=== PATIENT | male | born 2000 | race Caucasian/White ===

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

== ENCOUNTER 2021-04-13 11:54 | Emergency (ER) | payer OTHER ==
[~2021-04-13] VITALS: Ht 175.3 cm; Wt 99.5 kg
[~2021-04-13 11:54] MED LIST: PROT1TAB2 PO
--- OUTSIDE RECORDS SUMMARY | 2021-04-13 12:06 | CCD ---
Author Author [facility] Organization [facility] Address Unknown Phone Unavailable Care Team Providers Care Tv Host Name Role Phone NO, PCP Unavailable Unavailable LETTIERE, A CHRISTIAN PA Unavailable Unavailable LETTIERE, A CHRISTIAN PA Unavailable Unavailable LETTIERE, A CHRISTIAN PA Unavailable Unavailable LETTIERE, A CHRISTIAN PA Unavailable Unavailable LETTIERE, A CHRISTIAN PA Unavailable Unavailable LETTIERE, A CHRISTIAN PA Unavailable Unavailable LETTIERE, A CHRISTIAN PA Unavailable Unavailable LETTIERE, A CHRISTIAN PA Unavailable Unavailable LETTIERE, A CHRISTIAN PA Unavailable Unavailable LETTIERE, A CHRISTIAN PA Unavailable Unavailable LETTIERE, A CHRISTIAN PA Unavailable Unavailable LETTIERE, A CHRISTIAN PA Unavailable Unavailable LETTIERE, A CHRISTIAN PA Unavailable Unavailable LETTIERE, A CHRISTIAN PA Unavailable Unavailable LETTIERE, A CHRISTIAN PA Unavailable Unavailable LETTIERE, A CHRISTIAN PA Unavailable Unavailable LETTIERE, A CHRISTIAN PA Unavailable Unavailable LETTIERE, A CHRISTIAN PA Unavailable Unavailable LETTIERE, A CHRISTIAN PA Unavailable Unavailable LETTIERE, A CHRISTIAN PA Unavailable Unavailable LETTIERE, A CHRISTIAN PA Unavailable Unavailable LETTIERE, A CHRISTIAN PA Unavailable Unavailable LETTIERE, A CHRISTIAN PA Unavailable Unavailable LETTIERE, A CHRISTIAN PA Unavailable Unavailable LETTIERE, A CHRISTIAN PA Unavailable Unavailable LETTIERE, A CHRISTIAN PA Unavailable Unavailable LETTIERE, A CHRISTIAN PA Unavailable Unavailable LETTIERE, A CHRISTIAN PA Unavailable Unavailable LETTIERE, A CHRISTIAN PA Unavailable Unavailable LETTIERE, A CHRISTIAN PA Unavailable Unavailable LETTIERE, A CHRISTIAN PA Unavailable Unavailable Yang, Trevor Sheppard PA-C Unavailable Unavailable Yang, Trevor Sheppard PA-C Unavailable Unavailable Yang, J Silver PA-C Unavailable Unavailable Yang, Trevor Sheppard PA-C Unavailable Unavailable Yang, Trevor Sheppard PA-C Unavailable Unavailable Yang, Trevor Sheppard PA-C Unavailable Unavailable Yang, Trevor Sheppard PA-C Unavailable Unavailable Yang, Trevor Sheppard PA-C Unavailable Unavailable Yang, Trevor Sheppard PA-C Unavailable Unavailable Yang, Trevor Sheppard PA-C Unavailable Unavailable Re-disclosure Warning The records that you are about to access may contain information from federally-assisted alcohol or drug abuse programs. If such information is present, then the following federally mandated warning applies: This information has been disclosed to you from records protected by federal confidentiality rules (42 CFR part 2). The federal rules prohibit you from making any further disclosure of this information unless further disclosure is expressly permitted by the written consent of the person to whom it pertains or as otherwise permitted by 42 CFR part 2. A general authorization for the release of medical or other information is NOT sufficient for this purpose. The Federal rules restrict any use of the information to criminally investigate or prosecute any alcohol or drug abuse patient.The records that you are about to access may contain highly sensitive health information, the redisclosure of which is protected by Article 27-F of the [facility] Public Health law. If you continue you may have access to information: Regarding HIV / AIDS; Provided by facilities licensed or operated by the [facility] Office of Mental Health; or Provided by the [facility] Office for People With Developmental Disabilities. If such information is present, then the following [facility] mandated warning applies: This information has been disclosed to you from confidential records which are protected by state law. State law prohibits you from making any further disclosure of this information without the specific written consent of the person to whom it pertains, or as otherwise permitted by law. Any unauthorized further disclosure in violation of state law may result in a fine or intermediate sentence or both. A general authorization for the release of medical or other information is NOT sufficient authorization for further disc losure. Encounters Encounter Providers Location Date Indications Data Source(s ) Emergency Attender: Silver AARONCConsultant: PCP NO 08/01/2020 07:36:00 AM EST - 08/01/2020 09:56:[address] [facility] Patient discharged. Outpatient Attender: CHRISTIAN ramos 05/09/2020 03:30:00 PM EST [facility] ([facility]) Medications No Information Insurance Providers Payer name Policy type / Coverage type Policy ID Covered alliance party ID Covered alliance party's relationship to stapleton Policy [place] Plan Information [facility] [employer] [id number] SP [id number] [facility] - PHYSICIAN [id number] 18 [id number] [facility] [id number] 18 [id number] Problems, Conditions, and Diagnoses Code Display Name Description Problem Type Effective Dates Data Source(s) U071 COVID-19 COVID-19 Diagnosis 08/01/2020 07:36:00 AM [facility] J029 Acute pharyngitis, unspecified Acute pharyngitis, unsp ecified Diagnosis 08/01/2020 07:36:00 AM [facility] Surgeries/Procedures No Information Results ID Date Data Source [id number] 08/04/2020 11:03:00 AM [facility] [address] [place] [address] PHONE: [phone] FAX: [phone] Name .................. : PARRISH Sue Acct Number.................. : [id number] ROOM. ................. : TR-1B Number ................... : [id number] Stay type ............. : E/R Discharge Date......... ... : Admit Date ......... : 0 08/01/20 Admit Phys .................... : YANG JOAN Date of ....... : 2000 Family Phys ................... : NO PCP Phone .................. : [phone] Age ................................ : 20 Film# .................. .:[id number] Sex ................................. : M Unsigned transcriptions are preliminary reports and do not represent a medical or legal document CHEST PORTABLE [id number] COMPLETE:08/01/20 08:16 KBO 3661 Reason(s): cough, fever, chest congestion CHEST AP PORTABLE, 08/01/20: FINDINGS: The cardiac and mediastinal silhouettes appear normal and the lungs are clear. The bones and soft tissues are normal. The upper abdomen is unremarkable. IMPRESSION: No acute disease identifiable. Electronically Reviewed and Signed By RONEL VALLEJO MD , 08/04/20 11:03, [facility] Transcribe Ini tials: MARGARET, Transcribe Date: 08/01/20 09:07, Dictation Date: Copy for: YANG Murray via fax Copy for: EMERGENCY DEPT via [facility] Copy for: 710 MED REC DISCHARGED Page 1 of 1 Name Value Range Interpretation Code Description Data Saima rce(s) Supporting Document(s) ID Date Data Source [id number] 08/01/2020 07:36:00 AM EST [facility] 1 OrderSheet [facility] Emergency Department [address] [place] [address] Phone #: ext- [phone] 08/01/2020 07:33 Patient: FERNANDA SENIOR Sex: M : 2000 Age: 20yWEIGHT:90.7 kg (S) HEIGHT:70 inches (S) BMI:28.7ALLERGIES: NoneCHIEF COMPLAINT: fever, sore throatDIAGNOSIS: Upper respiratory infectionLAB ORDERSOrder Description Priority Entered Acknowledged InitialedCORONAVIRUS STAT 08:01 08/01/2020 08:02 MONCHO MendesID-19 Silver YOO; Kecia Tellez(Symptomatic asDefined by CDC)(08/01/20) (FirstTest) (NotHospitalized) (Not) (NotResident inCongregate CareSetting) (NotEmployed inHealthcare Setting)Rapid Strep Screen STAT 08:01 08/01/2020 08:02 Silver Mendes; Kecia TellezInfluenza Nasal A B STAT 08:01 08/01/2020 08:02 Silver Mendes; Kecia TellezDIAGNOSTIC STUDY ORDERSOrder Description Priority Entered Acknowledged InitialedChest Portable 1 STAT 08:01 08/01/2020 Ack'd: 08:02 08:09 Migue Mendes; Kecia Mendes R.N.(Oxygen?(No)) R.NSheri Reason for Study: cough, fever, chest congestionMEDICATION/IV/DRIP/FLUID ORDERSOrder Description Priority Entered Acknowledged InitialedAcetaminophen 1 g 08:01 08/01/2020 Ack'd: 08:02 08:12 Vaughn,PO X1 dose: 1000 Silver YOO; Kecia Mendes R.N.mg ( NOW x1) R.N. 2 OrderSheet [facility] Emergency Department [address] [place] [address] Phone #: ext- [phone] 08/01/2020 07:33 Patient: FERNANDA SENIOR Sex: M : 2000 Age: 20yGENERAL ORDERSOrder Description Priority Entered Acknowledged Initialed[Electronically signed by Kecia Mendes R.N. (09:57 08/01/2020)][Electronically signed by Silver Soria (11:06 08/01/2020)][Elec tronically locked by Kecia Mendes R.N. (09:57 08/01/2020)] Name Value Range Interpretation Code Description Data Saima e(s) Supporting Document(s) ID Date Data Source [id number] 08/01/2020 07:36:00 AM [facility] 1 Medication Reconciliation Report [facility] Emergency Department [address] [place] [address] Phone #: ext- [phone] 08/01/2020 07:33 Patient: FERNANDA SENIOR Sex: M : 2000 Age: 20yWeight: 90.7 kgHeight/Length: 70 in.BMI: 28.7ALLERGIES: NoneThe patient's Home Medications are listed below:NONE.The source(s) of the original Home Medication information:Not obtained.The following Medications were given to the patient in the Emergency Department:Acetaminophen [PO] PO 1000 mg, administered: 08:12 08/01/2020The following Medications were prescribed to the patient:None. Name Value Range Interpretation Code Description Data Saima rce(s) Supporting Document(s) ID Date Data Source [id number] 08/01/2020 07:36:00 AM [facility] 1 Medication Administration Record [facility] Emergency Department [address] [place] [address] Phone #: [phone]- [phone] 08/01/2020 07:33 Patient: FERNANDA SENIOR Sex: M : 2000 Age: 20yWeight: 90.7 kgHeight/Length: 70 inBMI: 28.7ALLERGIES: None Date/Time Medication Administered Medication OrderedGiven ACETAMINOPHEN [PO] Acetaminophen 1 g PO X1 dose:08:12 08/01/2020 Dose: 1000 mg Tablets PO 1000 mg (NOW x1)Kecia Mendes R.N. Name Value Range Interpretation Code Description Data Saima rce(s) Supporting Document(s) ID Date Data Source [id number] 08/01/2020 07:36:00 AM EST [facility] 1 General Instructions [facility] Emergency Department [address] [place] [address] Phone #: ext- [phone] 08/01/2020 07:33 Patient: FERNANDA SENIOR Sex: M : 2000 Age: 20y Upper respiratory infection.INSTRUCTIONS Alternate Tylenol (Acetaminophen) or Motrin (Ibuprofen) for temperature greater than 100.4 degrees. Take according to label instructions. No strenuous activity until better. Rest at home. Drink plenty of fluids for the next 48 hours as needed. Do not smoke. No alcohol. (self quarantine at home until contacted by [facility] with COVID 19 test results.). Warnings: Further evaluation is necessary. It is very important to follow up with a healthcare provider. GENERAL WARNINGS: Return or contact your physician immediately if your condition worsens or changes unexpectedly, if not improving as expected, or if other problems arise. Specifically return if pain, vomiting, bleeding, breathing difficulty or fever. Your Current Medications: . No home medication. Understanding of the discharge instructions verbalized by patient. Expected course of illness, discharge instructions, activity level, follow-up appointment and risks and benefits of treatment reviewed with patient and understanding verbalized. Hero grees to plan of care. [facility], , , [address] [facility], , [place], [address] Follow up in one day even if well. Call for the next available appointment. Summary of care provided to patient via paper. ADDITIONAL INFORMATIONFever Control (Adult)A fever is a normal reaction of your body to an illness. The temperature itself usually isn't harmful. Itactually helps your body fight infections. You don't need to treat a fever unless you feel veryuncomfortable.Home careFollow these tips to take care of yourself at home: 2 General Instructions [facility] Emergency Department [address] [place] [address] Phone #: ext- [phone] 08/01/2020 07:33 Patient: FERNANDA SENIOR Sex: M : 2000 Age: 20y If you feel warm, check your temperature. Dress in light clothing. This will help you lose extra body heat through your skin. The fever will go up if you wear extra layers or wrap in blankets. Fever causes your body to lose water through evaporation. Drink plenty of fluids. These include water, juice, clear sodas, shi gregory, or lemonade.Fever medicinesYou can take acetaminophen every 4 to 6 hours if: You feel very uncomfortable Your oral temperature is 100.4F (38C) or higherIf you can't take or keep down oral medicine, ask your pharmacist for acetaminophen suppositories.You don't need a prescription for these.If the fever doesn't get better within 1 hour after you take acetaminophen, take ibuprofen. If thisworks, keep taking the ibuprofen every 6 to 8 hours.If you have chronic liver or kidney disease, talk with your healthcare provider before taking thesemedicines. Also talk with your provider if you ever had a stomach ulcer or GI (gastrointestinal)bleeding.If either medicine alone doesn't keep the fever down, you may switch off between the 2 medicinesevery 3 to 4 hours. But do this only if your healthcare provider has told you to. For example, takeibuprofen. Wait 3 hours. Then take acetaminophen. Wait 3 hours. Take ibuprofen, and so on. Followyour provider's instructions exactly.Don't give aspirin to anyone younger than age 19 who is ill with a fever. Aspirin can cause seriousside effects such as liver damage and Vadim syndrome. Although rare, Vadim syndrome is a veryserious illness usually found in children younger than age 15. The syndrome is closely linked to theuse of aspirin or aspirin-containing medicine during viral infection.Follow-up careFollow up with your healthcare provider if you don't get better after 48 hours.When to seek medical adviceCall your healthcare provider right away if any of these occur: Fever, as directed by your healthcare provider, or: o Fever of 100.4F (38C) or above lasting for 24 to 48 hours 3 General Instructions [facility] Emergency Department [address] [place] [address] Phone #: ext- [phone] 08/01/2020 07:33 Patient: FERNANDA SENIOR MRN: [id number] Sex: M : 2000 Age: 20y o Fever lasting more than 3 days, even without other symptoms o Fever that happens after visiting a foreign country o Fever that happens within a month after visiting a country with malaria. Malaria is a serious illness. A fever can still be malaria even if you took medicine to prevent it. The medicine does not work in all cases o If you experience unexplained fever and your immune system is compromised such as by immune suppressing drugs, stem cell or organ transplant, HIV/AIDS, or cancer Confusion or trouble thinking Headache or stiff neck Flat, small, purplish red spots on your skin Low blood pressure Fast heart rate Fast (rapid) breathing You are You just had surgery, another medical procedure, or were just discharged from the hospital Use of medicines that suppress the immune system (immunosuppressants). These include steroids like prednisone, cancer medicines, and organ transplant rejection medicines. If you are not sure about whether your medicines suppress your immune system, ask your healthcare provider.Call 911Someone should call 911 if you: Are having trouble breathing or shortness of breath Are unresponsiveImportant reminderCall your healthcare provider if you get a fever after visiting a place where infectious diseases arecommon. Many people machine pecan picker a cold or other virus while traveling. This usually goes away without aproblem. But, some places have more serious diseases. Fever with certain other symptoms maymean you have a serious illness. Symptoms to watch for include diarrhea, skin rashes, insect bites,and skin boils, or infections. Your provider may ask you: 4 General Instructions [facility] Emergency Department [address] [place] [address] Phone #: [phone]- [phone] 08/01/2020 07:33 Patient: FERNANDA SENIOR Sex: M : 2000 Age: 20y What you did on your trip How long you were there Where you travelled and where you stayed (hotel, [place] house, tent) What you ate and drank If you were bitten by insects or other bugs If you swam in freshwater If you had sex or got a tattoo or piercing while you were thereCheck the [facility] to get more information about specific infectious diseases in the areas you havetraveled. 2892-9338 [employer]. [address] [place] [address]. All rights reserved. This information is not intended as asubstitute for professional medical care. Always follow your healthcare professional's instructions. Prevention steps for People with confirmed or suspected COVID-19 (including persons under investigation) who do not need to be hospitalized And People with confirmed COVID-19 who were hospitalized and determined to be medically stable to go home Your healthcare provider and public health staff will evaluate whether you can be cared for at home. If it isdetermined that you do not need to be hospitalized and can be isolated at home, you will be monitored by [facility] or state health department. You should follow the prevention steps below until a healthcare provider [facility] or [facility] says you can return to your normal activities. Stay home except to get medical care People who are mildly ill with COVID-19 are able to isolate at home during their illness. You should restrict activities outside yourhome, except for getting medical care. Do not go to work, school, or public areas. Avoid using public transportation, ride-sharing, ortaxis. Separate yourself from other people and animals in your home People: As much as possible, you should stay in a specificroom and away from other people in your home. Also, you should use a separate bathroom, if available.Animals: You should restrict contact with pets and other animals while you are sick with COVID-19, just like you would around otherpeople. Although there have not been reports of pets or other animals becoming sick with COVID-19, it is still recommended thatpeople sick with COVID-19 limit contact with animals until more information is known about the virus. When possible, have anothermember of your household care for your animals while you are sick. If you are sick with COVID-19, avoid contact with yo ur pet,including petting, snuggling, being kissed or licked, and sharing food. If you must care for your pet or be around animals while you aresick, wash your hands before and after you interact with pets and wear a facemask. See https://www.cdc.gov/coronavirus/2019-ncov/faq.html#9254-gGvP-mtx-animals for more information. 5 General Instructions [facility] Emergency Department [address] [place] [address] Phone #: ext- [phone] 08/01/2020 07:33 Patient: FERNANDA SENIOR Sex: M : 2000 Age: 20yCall ahead before visiting your doctorIf you have a medical appointment, call the healthcare provider and tell them that you have or may have COVID-19. This will helpthe healthcare provider's office take steps to keep other people from getting infected or exposed.Wear a facemaskYou should wear a facemask when you are around other people {e.g., sharing a room or vehicle} or pets and before you enter [facility] office. If you are not able to wear a facemask {for example, because it causes trouble breathing}, thenpeople who live with you should not stay in the same room with you, or they should wear a facemask if they enter your room.Cover your coughs and sneezesCover your mouth and nose with a tissue when you cough or sneeze. Throw used tissues in a lined trash can. Immediately washyour hands with soap and water for at least 20 seconds or, if soap and water are not available, clean your hands with analcohol-based hand rag baler that contains at least 60% alcohol.Clean your hands oftenWash your hands often with soap and water for at least 20 seconds, especially after blowing your nose, coughing, or sneezing;going to the bathroom; and before eating or preparing food. If soap and water are not readily available, use an alcohol-based handsanitizer with at least 60% alcohol, covering all surfaces of your hands and rubbing them together until they feel dry.Soap and water are the best option if hands are visibly dirty. Avoid touching your eyes, nose, and mouth with unwashedhands.Flu Like Symptoms / Coronavirus Exposure - 30a Page 1 of 2Avoid sharing personal household itemsYou should not share dishes, drinking glasses, cups, eating utensils, towels, or bedding with other people or pets in yourhome. After using these items, they should be washed thoroughly with soap and water.Clean all "high-touch" surfaces everydayHigh touch surfaces include counters, tabletops, doorknobs, bathroom fixtures, toilets, phones, keyboards, tablets, and bedsidetables. Also, clean any surfaces that may have blood, stool, or body fluids on them. Use a household cleaning spray or wipe,according to the label instructions.Labels contain instructions for safe and effective use of the cleaning product including precautions you should take when applyingthe product, such as wearing gloves and making sure you have good ventilation during use of the product.Monitor your symptomshttps://www.[employer]/index.php Seek prompt medical attention if your illness is worsening {e.g., difficulty breathing}. Before seeking care, call your healthcareprovider and tell them that you have, or are being evaluated for, COVID-19. Put on a facemask before you enter the facility.These steps will help the healthcare provider's office to keep other people in the office or waiting room from getting infected orexposed. Ask your healthcare provider to call the local or state health department. Persons who are placed under activemonitoring or facilitated self- monitoring should follow instructions provided by their local health department or occupational healthprofessionals, as appropriate. When working with your local health department check their available hours.If you have a medical emergency and need to call 911, notify the dispatch personnel that you have, or are being evaluated forCOVID-19. If possible, put on a facemask before emergency medical services arrive.Discontinuing home isolationPatients with confirmed COVID-19 should remain under home isolation precautions until the risk of secondary transmission toothers is thought to be low. The decision to discontinue home isolation precautions should be made on a [id number] basis, inconsultation with healthcareproviders and state and local health departments.Contacts Localsensor 6 General Instructions [facility] Emergency Department [address] [place] [address] Phone #: ext- [phone] 08/01/2020 07:33 Patient: FERNANDA SENIOR Sex: M : 2000 Age: 20yOnline informationhttps://www.cdc.gov/coronavirus/2019-ncov/about/index.html Content source: National Center for Immunization and Respiratory Diseases (NCIRD), Division of Viral Diseases Recommended precautions for household members, intimate partners, and caregivers in a nonhealthcare setting1 of A patient with symptomatic laboratory-confirmed COVID-19 or A patient under investigationHousehold members, intimate partners, and caregivers in a nonhealthcare setting may have close contact2 with aperson with symptomatic, laboratory-confirmed COVID-19 or a person under investigation. Close contacts shouldmonitor their health; they should call their healthcare provider right away if they develop symptoms suggestive of COVID-19 {e.g., fever, cough, shortness of breath} {see Interim US Guidance for Risk Assessment and Public Health Management of Persons with Potential Coronavirus Disease 2019 {COVID-19} Exposure in Travel-associated or Community Settings.}Close contacts should also follow these recommendations: Make sure that you understand and can help the patient follow their healthcare provider's instructions for medication{s} and care. You should help the patient with basic needs in the home and provide support for getting groceries, prescriptions, and other personal needs. Monitor the patient's symptoms. If the patient is getting sicker, call his or her healthcare provider and tell them that the patient has laboratory-confirmed COVID-19. This will help the healthcare provider's office take steps to keep other people in the office or waiting room from getting infected. Ask the healthcare provide r to call the local or state health department for additional guidance. If the patient has a medical emergency and you need to call 911, notify the dispatch personnel that the patient has, or is being evaluated for COVID-19. Household members should stay in another room or be from the patient as much as possible. Household members should use a separate bedroom and bathroom, if available. 7 General Instructions [facility] Emergency Department [address] [place] [address] Phone #: ext- [phone] 08/01/2020 07:33 Patient: FERNANDA SENIOR Sex: M : 2000 Age: 20y Prohibit visitors who do not have an essential need to be in the home. Household members should care for any pets in the home. Do not handle pets or other animals while sick. For more information, see COVID-19 and Animals. Make sure that shared spaces in the home have good air flow, such as by an air conditioner or an opened window, weather permitting. Perform hand hygiene frequently. Wash your hands often with soap and water for at least 20 seconds or use an alcohol-based hand rag baler that contains 60 to 95% alcohol, covering all surfaces of your hands and rubbing them together until they feel dry. Soap and water should be used preferentially if hands are visibly dirty. Avoid touching your eyes, nose, and mouth with unwashed hands. The patient should wear a facemask when around other people, except when unable {for example, because it causes trouble breathing}. You, as the caregiver should always wear a mask, regardless if the patient has one on or not whenever you are in the same room as the patient. Wear a disposable facemask and gloves when you touch or have contact with the patient's blood, stool, or body fluids, such as saliva, sputum, nasal mucus, vomit, urine. Throw out disposable facemasks and gloves after using them. Do not reuse. When removing personal protective equipment, first remove and dispose of gloves. Then, immediately clean your hands with soap and water or alcohol-based hand rag baler. Next, remove and dispose of facemask, and immediately clean your hands again with soap and water or alcohol-based hand rag baler. Avoid sharing household items with the patient. You should not share dishes, drinking glasses, cups, eating utensils, t owels, bedding, or other items. After the patient uses these items, you should wash them thoroughly {see below "Wash laundry thoroughly"}. Flu Like Symptoms / Coronavirus Exposure - 30a Page 2 of 2 Clean all "high-touch" surfaces, such as counters, tabletops, doorknobs, bathroom fixtures, toilets, phones, keyboards, tablets, and bedside tables, every day. Also, clean any surfaces that may have blood, stool, or body fluids on them. Use a household cleaning spray or wipe, according to the label instructions. Labels contain instructions for safe and effective use of the cleaning product including precautions you should take when applying the product, such as wearing gloves and making sure you have good ventilation during use of the product. Wash laundry thoroughly. Immediately remove and wash clothes or bedding that have blood, stool, or body fluids on them. Wear disposable gloves while handling soiled items and keep soiled items away from your body. Clean your hands {with soap and water or an alcohol-based hand rag baler} immediately after removing your gloves. https://www.[facility]/index.php Read and follow directions on labels of laundry or clothing items and detergent. In general, using a normal laundry detergent according to washing machine instructions and dry thoroughly using the warmest temperatures recommended on the clothing label. Place all used disposable gloves, facemasks, and other contaminated items in a lined container before disposing of them with other household waste. Clean your hands {with soap and water or an alcohol- based hand rag baler} immediately after handling these items. Soap and water should be used preferentially if hands are visibly dirty. Discuss any additional questions with your state or local health department or healthcare provider. Check available hours when contacting your local health department.[employer] information 8 General Instructions [facility] Emergency Department [address] [place] [address] Phone #: ext- [phone] 08/01/2020 07:33 Patient: FERNANDA SENIOR Sex: M : 2000 Age: 20y https://www.cdc.gov/coronavirus/2019-ncov/about/index.htmlContent source: National Center for Immunization and Respiratory Diseases (NCIRD), Division of Viral DiseasesFootnotes 1Home healthcare personnel should refer to I nteri Infection Prevention and Control Recommendations for Patients with Known or Patients Under Investigationfor Coronavirus Disease 2019 (COVID-19) in a Healthcare Setting. 2Close contact is defined as-1. being within approximately 6 feet (2 meters) of a COVID-19 case for a prolonged period of time; close contact can occur while caring for, living with, visiting, or sharing a health care waiting area or room with a COVID-19 case - or -2. having direct contact with infectious secretions of a COVID-19 case (e.g., being coughed on You have been given the following additional information: Fever Control (Adult) COVID-19 No strenuous activity until better. Rest at home.(Electronically signed by FREDO Shaw 08/01/2020 11:06) Name Value Range Interpretation Code Description Data Saima rce(s) Supporting Document(s) ID Date Data Source [id number] 08/01/2020 07:36:00 AM EST [facility] 1 Clinical Report - Nurses [facility] Emergency Department [address] [place] [address] Phone #: ext- [phone] 08/01/2020 07:33 Patient: FERNANDA SENIOR Sex: M : 2000 Age: 20yTRIAGEArrived by private vehicle. Historian: patient. Accompanied by family.Acuity: LEVEL 3.Chief Complaint: HEADACHE.Alert. No acute distress.This started yesterday. He has had fever, nausea and weakness. ( chest congestion, sore throat).Treatment FIRE ASSISTANT:None.SEPSIS SCREEN: SIRS SCREEN NEGATIVE. SEPSIS SCREEN NEGATIVE. No suspected or confirmedsigns of infection present. --07:41 08/01/20 Candice Self R.N.07:34 08/01/20. BP: 139/67. MAP: 91. HR: 9. RR: 18. O2 saturation: 99%. Temp: 101.2 F (oral). Painlevel now: 12/04. --07:41 08/01/20 Candice Self R.N.Weight: 90.7 kg stated. Height/Length: 70 inches Per Patient. BMI: 28.7. --07:34 08/01/20 Candice Self R.N.MedicationsNone. --07:36 08/01/20 Candice Self R.N.AllergiesNone. --07:36 08/01/20 Candice Self R.N.PROBLEMS:no known problems.ADDITIONAL SURGERIES:Tonsillectomy. --07:36 08/01/20 Candice Self R.N.HistoryPAST MEDICAL HX: Immunizations: up-to-date.SOCIAL HX: Never smoker. No alcohol use or drug use. No recent travel. No known contact with a sickindividual. He was offered HIV testing but declined and hepatitis C testing but declined. He has nottraveled outside the [place]Infectious disease exposure: No infectious disease exposure. The patient was not exposed to Coronavirus.Patient is not a known carrier of tuberculosis, hepatitis, HIV, MRSA or VRE. Patient is not a known carrierof CRE. 2 Clinical Report - Nurses [facility] Emergency Department [address] [place] [address] Phone #: ext- [phone] 08/01/2020 07:33 Patient: FERNANDA SENIOR Sex: M : 2000 Age: 20y SELF HARM ASSESSMENT: Self harm assessment was performed. The patient answered "no" to the question(s) "Have you recently felt down, depressed, or hopeless?", "Do you have thoughts of harming or killing yourself?", "Do you have a plan for harming or killing yourself?", "Have you recently had thoughts about harming or killing others?", "Do you have any dangerous items in your possession?", "Have you noticed less interest or pleasure in doing things?", "Are you here because you tried to hurt yourself?" and "Have you ever tried to hurt yourself before today?". ABUSE ASSESSMENT: Abuse assessment. Abuse denied. No suspicion of abuse. No report of abuse. NUTRITIONAL RISK ASSESSMENT: The nutritional risk assessment revealed no deficiencies. FUNCTIONAL ASSESSMENT: Functional assessment: no impairments noted. LEARNING NEEDS ASSESSMENT: The learning needs assessment revealed no barriers. FALL RISK ASSESSMENT: Fall risk assessment completed. No risk factors identified. SKIN INTEGRITY ASSESSMENT: Skin integrity risk assessment completed. No skin integrity risk identified. --07:41 08/01/20 Candice Self R.N. Interventions Identification band on patient. To treatment room. --07:41 08/01/20 Candice Self R.N.PHYSICAL ASSESSMENTAmbulatory to room.GENERAL / NEURO / PSYCH: Alert. Oriented X 4. Appears in no acute distress. Speech within normallimits. ( some pharyngeal erythema noted).HEENT: No facial asymmetry noted. ( Pt c/o frontal headache).RESPIRATORY: Respirations not labored. Breath sounds within normal limits. ( Pt has intermittentproductive co ugh).CVS: Cardiac rhythm: normal sinus rhythm. Capillary refill less than 2 seconds.GI / : The patient has had nausea. Abdomen soft and nontender. No emesis noted.SKIN: Skin is warm and dry. --07:59 08/01/20 Kecia Mendes R.N.NURSING PROGRESS NOTESCardiac monitor and NIBP monitor placed on patient. Patient gowned. Reassurance given. Two patientidentifiers checked. Call light placed in reach. Side rails up x 2. Bed placed in lowest position. Brakesof bed on. Patient ready for evaluation. --07:41 08/01/20 Candice Self R.N. EKG time: (late entry - 07:40 08/01/2020). EKG was ordered, performed by a nurse and shown to the PA. --07:44 08/01/20 Kecia Mendes R.N. 07:50 08/01/2020 Site #1 started via IV in the right antecubital space with an 18g angiocath, with aseptic 3 Clinical Report - Nurses [facility] Emergency Department [address] [place] [address] Phone #: ext- [phone] 08/01/2020 07:33 Patient: FERNANDA SENIOR Sex: M : 2000 Age: 20ytechnique and good blood return; one attempt. Blood drawn: rainbow set and cultures x1. Labeled in thepresence of the patient and sent to the lab. Saline lock flushed with 10 mL saline. --07:51 08/01/20 Kecia Mendes R.N.late entry - 07:55 08/01/20. Patient ID band checked for patient name and birthdate: patient confirmed.Flu swab obtained by RN via nasal swab. Labeled in the presence of the patient and sent to lab. PatientID band checked for patient name and birthdate: patient confirmed. COVID-19 specimen obtained by RNvia nasopharyngeal swab. Labeled in the presence of the patient and sent to lab. Patient ID bandchecked for patient name and birthdate: patient confirmed. Throat swab obtained by nurse for rapid strep;labeled in the presence of the patient and sent to lab. --07:58 08/01/20 Kecia Mendes R.N.08:07 08/01/20. BP: 129/76. MAP: 93. HR: 84. RR: 24. O2 saturation: 98% on room air. --08:08 08/01/20Trevor Mendes R.N.Portable chest x-ray completed. --08:10 08/01/20 Kecia Mendes R.N.08:12 08/01/2020 Acetaminophen PO Tablets 1000 mg given. Allergies verified and confirmed 5 rights.Information reviewed with patient including reason for taking this medication, signs of allergic reaction andprecautions. Verbalizes understanding. --08:12 08/01/20 Kecia Mendes R.N.Reassessment acuity: LEVEL 3.Rounding: Proximity of possessions / care items: call light within easy reach. Set expectations: advisedpatient of rounding protocol timing and asked if they needed anything else at this time. The patient reportsno complaints and he is calm and resting quietly. Overall patient status is the same- he states feels thesame.GENERAL / NEURO / PSYCH: Alert. Oriented X 4. Patient waiting for radiology results. --08:47 08/01/20Kecia Mendes R.N.08:30 08/01/20. BP: 126/75. MAP: 92. HR: 97. RR: 25. O2 saturation: 98%. --08:47 08/01/20 Kecia Mendes R.N.Reassessment acuity: LEVEL 3.Rounding: Pain: assessed pain level. Position: states comfortable. Proximity of possessions / care items:call light within easy reach. Set expectations: advised patient of rounding protocol timing and asked if theyneeded anything else at this time. The patient reports no complaints and he is calm and resting quietly.Overall patient status is improved- he states feels better.GENERAL / NEURO / PSYCH: Alert. Oriented X 4. Patient waiting for disposition. --09:28 08/01/20Kecia Mendes R.N.09:00 08/01/20. BP: 125/71. MAP: 89. HR: 83. RR: 28. O2 saturation: 98%. --09:08/01/20 Kecia Mendes R.N. 4 Clinical Report - Nurses [facility] Emergency Department [address] [place] [address] Phone #: ext- [phone] 08/01/2020 07:33 Patient: FERNANDA SENIOR Sex: M : 2000 Age: 20y 09:28 08/01/20. BP: 123/67. MAP: 85. HR: 83. RR: 28. O2 saturation: 97%. --09:28 08/01/20 Kecia Mendes R.N. 09:12 08/01/2020 Acetaminophen PO Response: no adverse reaction pain is improving. Symptoms have improved the patient feels better. --09:57 08/01/20 Kecia Mendes R.N.DISPOSITION / DISCHARGE Departure time: 09:56 08/01/2020. Condition at departure: improved and stable. No learning barriers present. Discharge instructions provided and reviewed with the patient. Reviewed warnings (please see paper copy; QUARENTINE INSTRUCTIONS). Reviewed fever care instructions. Activity restrictions reviewed. Work note given. Patient verbalized understanding. Written instructions provided in Senegalese. The patient was discharged by the physician pharmacist assistant. He was discharged home and accompanied by spouse. He left ambulatory and via private vehicle. Spouse driving. --09:56 08/01/20 Kecia Mendes R.N. 09:55 08/01/20. BP: 122/64. MAP: 83. HR: 85. RR: 25. O2 saturation: 99% on room air. Temp: 100 F (oral). Pain level now: 08/06. --09:56 08/01/20 Kecia Mendes R.N. 09:50 08/01/2020 Site #1 removed upon discharge. Bandage applied (2x2 and tape, no bleeding noted, pt tolerated well, clean dry and intact upon d/c). --09:57 08/01/20 Kecia Mendes R.N. ( FREDO Soria aware of all VS and is okay with D/C.). --09:57 08/01/20 Kecia Mendes R.N.Locked/Released at 08/01/2020 09:57 by Kecia Mendes R.N. Name Value Range Interpretation Code Description Data Saima rce(s) Supporting Document(s) ID Date Data Source [id number] 08/01/2020 07:36:00 AM EST [facility] 1 Clinical Report - Physicians/Mid Levels [facility] Emergency Department [address] [place] [address] Phone #: ext- [phone] 08/01/2020 07:33 Patient: FERNANDA SENIOR Sex: M : 2000 Age: 20y Time Seen: 07:44 08/01/2020. Arrived- By private vehicle. Historian- patient. Disposition decision: 09:28 08/01/2020.HISTORY OF PRESENT ILLNESS Chief Complaint: SORE THROAT and FEVER. chest congestion, nausea. This started yesterday Cough, fever, chest congestion, headache and nausea since yesterday. No known sick contacts. The illness is described as moderate. The patient has had sputum production, a cough, a sore throat, nasal congestion and fever. He has had chills, muscle aches and a nasal discharge. No difficulty breathing, chest discomfort or pain, hoarseness or sinus pressure. No sinus drainage or ear pain. Additional history - No known contact with a sick individual. No recent travel. Similar symptoms previously. None. Recent medical care: Not recently seen/assessed.REVIEW OF SYSTEMSThe patient has had a headache and nausea. No eye discomfort, vomiting, diarrhea, abdominal pain orhay fever. No pedal edema, calf pain, difficulty with urination, skin rash or enlarged lymph nodes. Nojoint pain or tick bite.PAST HISTORYSee nurses notes. Problems: no known problems. Additional Surgeries: Tonsillectomy. Medications: None. Allergies: None.SOCIAL HISTORYNever smoker. Not exposed to second-hand smoke at home. No alcohol use or drug use. No recenttravel.ADDITIONAL NOTES 2 Clinical Report - Physicians/Mid Levels [facility] Emergency Department [address] [place] [address] Phone #: ext- [phone] 08/01/2020 07:33 Patient: FERNANDA SENIOR Sex: M : 2000 Age: 20y The nursing notes have been reviewed with agreement regarding the chief complaint, HPI, ROS, PMH and patient medications and allergies.PHYSICAL EXAMVital Signs: 08/01/2020 09:55 BP: 122/64. MAP: 83. HR: 85. RR: 25. O2 saturation: 99% on room air.Temp: 100 F. Pain level now: 08/06.08/01/2020 09:28 BP: 123/67. MAP: 85. HR: 83. RR: 28. O2 saturation: 97%.08/01/2020 09:00 BP: 125/71. MAP: 89. HR: 83. RR: 28. O2 saturation: 98%.08/01/2020 08:30 BP: 126/75. MAP: 92. HR: 97. RR: 25. O2 saturation: 98%.08/01/2020 08:07 BP: 129/76. MAP: 93. HR: 84. RR: 24. O2 saturation: 98% on room air.08/01/2020 07:34 BP: 139/67. MAP: 91. HR: 9. RR: 18. O2 saturation: 99%. Temp: 101.2 F. Pain levelnow: 12/04. Have been reviewed as abnormal and appear to be correct. Blood pressure normal. Meanarterial pressure- normal. Respiratory rate normal. Febrile. Oxygen saturation normal.Appearance: Alert. No acute distress.Eyes: Pupils equal, round and reactive to light. Eyes normal inspection.ENT: Ears normal. Thin, clear nasal discharge present. Pharynx normal. Uvula midline.Neck: Normal inspection. Neck supple.CVS: Normal heart rate and rhythm. Heart sounds normal. Pulses normal.Respiratory: No respiratory distress. Painless inspiration. Breath sounds normal.Abdomen: Soft and nontender. No organomegaly.Back: Normal inspection.Skin: Skin warm and dry. Normal skin color. No rash. Normal skin turgor.Extremities: Extremities exhibit normal ROM. No lower extremity edema.Neuro: Oriented X 3. No motor deficit. No sensory deficit. Reflexes normal.LABS, X-RAYS, AND EKGEKG: EKG time: 08:04 08/01/2020. No acute process. Rate: 86. Normal P waves. Normal JOSSIE.Normal QRS complex. Normal axis. Normal ST and T waves and QT. Abnormal QTc. NSR, T waveabnormality, consider inferior ischemia. Prior EKG unavailable. The study has been interpretedcontemporaneously by me. The study has been independently viewed by me. The EKG appears to be agood tracing. I agree with and confirm the computer reading of the EKG. Interpretation time: 08:.Chest X-ray: No acute disease. Views: AP (portable). Technique: good. The X-rays wereindependently viewed by me and interpreted by the radiologist and contemporaneously by me.Interpretation time: 08:16 08/01/2020.Laboratory Tests: Laboratory tests have been ordered, with results reviewed and considered in themedical decision making process. Rapid Strep Screen: (BALDEV: 08/01/2020 07:55) ( MsgRcvd 08/01/2020 08:55) Final results Test Result Flag Units (Reference) RAPID STREP NEGATIVE (NORMAL: NEGAT RAPID STREP REENTER NEGATIVE (NORMAL: NEGAT { PROCEDURAL CONTROL VALID ){ KIT LOT # [id number] ){ KIT EXP DATE 10.06.21 )The Strep A 2 assay utilizes isothermal nucleic acid amplification technology fothe qualitative detection of Group A Strep bacterial nucleic acid in throat swabspecimens.All negative test results no longer need to be confirmed with a culture. Follow-up testing requiring a culture is necessary if clinical symptoms persist, or inthe event 3 Clinical Report - Physicians/Mid Levels [facility] Emergency Department [address] [place] [address] Phone #: ext- [phone] 08/01/2020 07:33 Patient: FERNANDA SENIOR Sex: M : 2000 Age: 20yof an acute rheumatic fever outbreak. A culture will need to beordered by the Qualified Medical Provider.Negativeresults do not preclude infection with Group A Strep and should not beused as the sole basis for treatment.Influenza Nasal A B: (BALDEV: 08/01/2020 07:55) ( MsgRcvd 08/01/2020 09:05) Final results Test Result Flag Units (Reference) INFLUENZA A NEGATIVE (NORMAL: NEGAT INFLUENZA B NEGATIVE (NORMAL: NEGAT INFLUENZA A REENTER NEGATIVE (NORMAL: NEGAT INFLUENZA B REENTER NEGATIVE (NORMAL: NEGAT PROCEDURAL CONTROL VALID KIT LOT # _[id number] 08/01/20.TAD. KIT EXP DATE _06.28.21 08/01/20.TAD.The Influenza A utilizing an isothermal nucleic acid amplification technology for thequalitativedetection of influenza A and B viral RNA.Negative results do not preclude influenza virus infection and shouldnot beused as the sole basis for diagnosis, treatment or other patient managementdecisions.Chest Portable 1 View: (BALDEV: 08/01/2020 08:01) ( MsgRcvd 08/01/2020 09:08) In [place]EReason(s): cough, fever, chest congestionTRANSPORTATION: P IV? O2? Oxygen?(No) Room: [place] [address] PHONE: [phone] FAX: [phone] Name .................. : PARRISH Sue Acct Number.................. : [id number] ROOM. .... ............. : TR-1B MR Number ................... : [id number] Stay type ............. : E/R Discharge Date......... ... : Admit Date ......... : 08/01/20 Admit Phys .................... : YANG JOAN Date of ....... : 2000 Family Phys ................... : NO PCP Phone .................. : [phone] Age ................................ : 20 Film# .................. .:[id number] Sex ................................. : M Unsigned saucedo scriptions are preliminary reports and do not represent a medical or legal document CHEST PORTABLE [id number] COMPLETE:08/01/20 08:16 KBO [id number] Reason(s): cough, fever, chest congestion CHEST AP PORTABLE, 08/01/20: FINDINGS: The cardiac and mediastinal silhouettes appear normal and the lungs are clear. The bones and soft tissues are normal. The upper abdomen is unremarkable. IMPRESSION: No acute disease identifiable. Electronically Reviewed and Signed By DCTNAME , SIGNDATE, [facility] Transcribe Initials: SSR, Transcribe Date: 08/01/20 09:07, Dictation Date: 4 Clinical Report - Physicians/Mid Levels [facility] Emergency Department [address] [place] [address] Phone #: ext- [phone] 08/01/2020 07:33 Patient: FERNANDA SENIOR Sex: M : 2000 Age: 20y <<REPDIST>> Page 1 of 1.PROGRESS AND PROCEDURESDisposition: Discharged home in good and improved condition.Discharge decision based on the following: patient's condition is improved; patient is ambulatory; patient isactive; patient's pain is controlled; patient's exam is improved; minimally abnormal test results; improvingcondition on repeat evaluation; social support is adequate; transportation is available; follow-up isavailable; clinical impression is consistent with outpatient treatment.CLINICAL IMPRESSION Upper respiratory infection (rule out COVID 19).INSTRUCTIONS Alternate Tylenol (Acetaminophen) or Motrin (Ibuprofen) for temperature greater than 100.4 degrees. Take according to label instructions. No strenuous activity until better. Rest at home. Drink plenty of fluids for the next 48 hours as needed. Do not smoke. No alcohol. (self quarantine at home until contacted by [facility] with COVID 19 test results.). Warnings: Further evaluation is necessary. It is very important to follow up with a healthcare provider. GENERAL WARNINGS: Return or contact your physician immediately if your condition worsens or changes unexpectedly, if not improving as expected, or if other problems arise. Specifically return if pain, vomiting, bleeding, breathing difficulty or fever. Your Current Medications: . No home medication. Understanding of the discharge instructions verbalized by patient. Expected course of illness, discharge instructions, activity level, follow-up appointment and risks and benefits of treatment reviewed with patient and understanding verbalized. Agrees to plan of care. Follow-up with: [facility], , , [id number] [place] [address], , [place], [address] Follow up in one day even if well. Call for the next available appointment. Summary of care provided to 5 Clinical Report - Physicians/Mid Levels [facility] Emergency Department [address] [place] [address] Phone #: [phone] 08/01/2020 07:33 Patient: FERNANDA SENIOR Sex: M : 2000 Age: 20y patient via paper.(Electronically signed by FREDO Shaw 08/01/2020 11:06) Name Value Range Interpretation Code Description Data Saima rce(s) Supporting Document(s) ID Date Data Source [id number] 08/01/2020 07:36:00 AM EST [facility] Addenda for FERNANDA SENIOR VisitID: [id number] Date: 9:29covid results positive, pt called and made aware.(Electronically signed by Savanah Carter RN - 08/03/2020 9:29) Name Value Range Interpretation Code Description Data Saima rce(s) Supporting Document(s) ID Date Data Source [id number] 08/02/2020 01:25:00 PM [facility] [address] [place] [address] RESPIRATORY CARE REPORT ==== ---------NAME------- NUMBER SEX AGE ADMIT DISC. XRAY# F/C TYPECOMPS FERNANDA Sue [id number] M 20 08/01/20 08/01/20 [id number] [id number] E/R DATE OF : 2000 M/R# [id number] PH#: [phone] TR-[id number] LOCATION: EMERGENCY DEPT EKG [id number] COMP LETE:08/01/20 15:05 M [id number] PHYSICIAN: YANG FRANCO Name Value Range Interpretation Code Description Data Saima rce(s) Supporting Document(s) ID Date Data Source [id number] 08/01/2020 07:55:00 [facility] Name Value Range Interpretation Code Description Data Saima rce(s) Supporting Document(s) SARS coronavirus 2 RNA [facility]ed [facility] This lab was ordered by [facility] casey and reported by [facility]. ID Date Data Source [id number] 08/03/2020 06:51:00 AM [facility] Name Value Range Interpretation Code Description Data Saima rce(s) Supporting Document(s) SARS-CoV-2, ANDREY Detected Not Detected A [facility] This nucleic acid amplification test was developed and its performancecharacteristics determined by [employer]. Nucleic acidamplification tests include RT-PCR and TMA. This test has not beenFDA cleared or approved. This test has been authorized by FDA underan Emergency Use Authorization (EUA). This test is only authorizedfor the duration of time the declaration that circumstances existjustifying the authorization of the emergency use of in vitrodiagnostic tests for detection of SARS-CoV-2 virus and/or diagnosisof COVID-19 infection under section 564(b)(1) of the Act, 21 U.S.C.360bbb-3(b) (1), unless the authorization is terminated or revokedsooner.When diagnostic testing is negative, the possibility of a falsenegative result should be considered in the context of a patient'srecent exposures and the presence of clinical signs and symptomsconsistent with COVID- 19. An individual without symptoms of COVID-19and who is not shedding SARS-CoV-2 virus would expect to have anegative (not detected) result in this assay. ID Date Data Source [id number] 08/01/2020 09:04:00 AM EST [facility] Name Value Range Interpretation Code Description Data Saima rce(s) Supporting Document(s) Influenza virus A Ag [Presence] in Nasopharynx by [facility] y NEGATIVE NORMAL: NEGATIVE [facility] Influenza virus B Ag [Presence] in Nasopharynx by [facility] y NEGATIVE NORMAL: NEGATIVE [facility] NEGATIVENEGATIVE PROCEDURAL CO NTROL VALID KIT LOT # _[id number] 08/01/20.TAD. KIT EXP DATE _06.28.21 08/01/20.TAD.The Influenza A & B assay is a rapid molecular in vitro diagnostic testutilizing an isothermal nucleic acid amplification technology for thequalitative detection of influenza A and B viral RNA.Negative results do not preclude influenza virus infection and should not beused as the sole basis for diagnosis, treatment or other patient managementdecisions. ID Date Data Source [id number] 08/01/2020 08:55:00 AM EST [facility] Name Value Range Interpretation Code Description Data Saima rce(s) Supporting Document(s) RAPID STREP NEGATIVE NORMAL: NEGATIVE [facility] RAPID STREP REENTER NEGATIVE NORMAL: NEGATIVE [facility] { PROCEDURAL CONTROL VALID ){ KIT LOT # [id number] ){ KIT EXP DATE 10.06.21 )The Strep A 2 assay utilizes isothermal nucleic acid amplification technology fothe qualitative detection of Group A Strep bacterial nucleic acid in throat swabspecimens.All negative test results no longer need to be confirmed with a culture. Follow-up testing requiring a culture is necessary if clinical symptoms persist, or inthe event of an acute rheumatic fever outbreak. A culture will need to beordered by the Qualified Medical Provider.Negative results do not preclude infection with Group A Strep and should not beused as the sole basis for treatment. ID Date Data Source [id number] 05/09/2020 12:00:00 AM EST [facility] Name Value Range Interpretation Code Description Data [facility] rce(s) Supporting Document(s) SARS coronavirus 2 Ag [facility] This lab was ordered by [facility] and reported by [facility]. Procedure Social History Code Duration Value Status Description Data Source(s ) Smoking 05/09/2020 12:00:00 AM EST Patient has never smoked co mpleted Patient has never smoked [facility] ([facility]) Vital Signs ID Date Data Source UNK Name Value Range Interpretation Code Description Data Source(s) Systolic blood pressure 132 mm[Hg] 132 mm[Hg] M [facility] ([facility]) Diastolic blood pressure 80 mm[Hg] 80 mm[Hg] [facility] Heart rate 95 /min 95 /min [facility] ([facility]) Respiratory rate 14 /min 14 /min [facility] ( [facility]) Oxygen saturation in Arterial blood by Pulse oximetry 98 % 98 % [facility] ([facility]) Body temperature 98.4 [degF] 98.4 [degF] [facility] Body weight 206.00 [lb_av] 206.00 [lb_av] RAYSHAWN Foley ([facility], [facility]) Body height 70 [in_i] 70 [in_i] YUNIER ([facility] [place], [facility]) 5'10" Body mass index (BMI) [Ratio] 29.6 kg/m2 29.6 k g/m2 YUNIER ([facility] [place], [facility])
--- OUTSIDE RECORDS SUMMARY | 2021-04-13 13:41 | CCD ---
Author Author [facility] Organization [facility] Address Unknown Phone Unavailable Care Team Providers Care Occ Med Physician Name Role Phone NO, PCP Unavailable Unavailable [...] is protected by Article 27-F of the [facility] Public Health law. If you continue you may have access to information: Regarding HIV / AIDS; Provided by facilities licensed or operated by the [facility] Office of Mental Health; or Provided by the [facility] Office for People With Developmental Disabilities. If such information is present, then the following [facility] mandated warning applies: This information has been [...] law may result in a fine or mcfp sentence or both. A general authorization for the release of medical or other information is NOT sufficient authorization for further disc losure. Encounters Encounter Providers Location Date Indications Data Source(s ) Emergency Attender: Silver AARONCConsultant: PCP NO 08/01/2020 07:36:00 AM EST - 08/01/2020 09:56:00 AM EST [facility] Patient discharged. Outpatient Attender: CHRISTIAN ramos 05/09/2020 03:30:00 PM EST [facility] ([facility]) Medications No Information Insurance Providers Payer name Policy type / Coverage type Policy ID Covered democrat ID Covered democrat's relationship to stapleton Policy [place] Plan Information [facility] ACTIVE DUTY [id number] SP [id number] [facility] - PHYSICIAN [id number] 18 [id number] [facility] [id number] 18 [id number] Problems, Conditions, and Diagnoses Code Display Name Description Problem Type Effective Dates Data Source(s) U071 COVID-19 COVID-19 Diagnosis 08/01/2020 07:36:00 AM [facility] J029 Acute pharyngitis, unspecified Acute pharyngitis, unsp ecified Diagnosis 08/01/2020 07:36:00 AM [facility] Surgeries/Procedures No Information Results ID Date Data Source [id number] 08/04/2020 11:03:00 AM [facility] [address] [place] [address] PHONE: [phone] FAX: [phone] Name .................. : PARRISH Sue Acct Number.................. : [id number] ROOM. ................. : TR-1B Number ................... : [id number] Stay type ............. : E/R Discharge Date......... ... : Admit Date ......... : 0 08/01/20 Admit Phys .................... : YANG JOAN Date of ....... : 2000 Family Phys ................... : NO PCP Phone .................. : [phone] Age ................................ : 20 Film# .................. .:[id number] Sex ................................. : M Unsigned transcriptions are preliminary reports and do not represent a medical or legal document CHEST PORTABLE 51489 COMPLETE:08/01/20 08:16 KBO 3661 Reason(s): cough, fever, chest congestion CHEST AP PORTABLE, 08/01/20: FINDINGS: The cardiac and mediastinal silhouettes appear normal and the lungs are clear. The bones and soft tissues are normal. The upper abdomen is unremarkable. IMPRESSION: No acute disease identifiable. Electronically Reviewed and Signed By RONEL VALLEJO MD , 08/04/20 11:03, [facility] Transcribe Ini tials: MARGARET, Transcribe Date: 08/01/20 09:07, Dictation Date: Copy for: YANG Murray via fax Copy for: EMERGENCY DEPT via [facility] Copy for: 710 MED REC DISCHARGED Page 1 of 1 Name Value Range Interpretation Code Description Data Saima rce(s) Supporting Document(s) ID Date Data Source [id number] 08/01/2020 07:36:00 AM EST [facility] 1 OrderSheet [facility] Emergency Department [address] [place] [address] Phone #: ext- [phone] 08/01/2020 07:33 Patient: [...] R.N.mg ( NOW x1) R.N. 2 OrderSheet [facility] Emergency Department [address] [place] [address] Phone #: ext- [phone] 08/01/2020 07:33 Patient: FERNANDA SENIOR Sex: M : 2000 Age: 20yGENERAL ORDERSOrder Description Priority Entered Acknowledged Initialed[Electronically signed by Kecia Mendes R.N. (09:57 08/01/2020)][Electronically signed by Silver Soria (11:06 08/01/2020)][Elec tronically locked by Kecia Mendes R.N. (09:57 08/01/2020)] Name Value Range Interpretation Code Description Data Saima e(s) Supporting Document(s) ID Date Data Source [id number] 08/01/2020 07:36:00 AM [facility] 1 Medication Reconciliation Report [facility] Emergency Department [address] [place] [address] Phone #: ext- [phone] 08/01/2020 07:33 Patient: [...] rce(s) Supporting Document(s) ID Date Data Source [id number] 08/01/2020 07:36:00 AM [facility] 1 Medication Administration Record [facility] Emergency Department [address] [place] [address] Phone #: [phone]- [phone] 08/01/2020 07:33 Patient: FERNANDA SENIOR Sex: M : 2000 Age: 20yWeight: 90.7 kgHeight/Length: 70 inBMI: 28.7ALLERGIES: None Date/Time Medication Administered Medication OrderedGiven ACETAMINOPHEN [PO] Acetaminophen 1 g PO X1 dose:08:12 08/01/2020 Dose: 1000 mg Tablets PO 1000 mg (NOW x1)Kecia Mendes R.N. Name Value Range Interpretation Code Description Data Saima rce(s) Supporting Document(s) ID Date Data Source [id number] 08/01/2020 07:36:00 AM EST [facility] 1 General Instructions [facility] Emergency Department [address] [place] [address] Phone #: ext- [phone] 08/01/2020 07:33 Patient: [...] (self quarantine at home until contacted by [facility] with COVID 19 test results.). Warnings: [...] MEDICAL CLINIC Jesse [facility]ARCIA, , , [address] [address] [facility], , [place], [address] Follow up in one day even if [...] of yourself at home: 2 General Instructions [facility] Emergency Department [address] [place] [address] Phone #: ext- [phone] 08/01/2020 07:33 Patient: [...] fluids. These include water, juice, clear sodas, sih gregory, or lemonade.Fever medicinesYou can take acetaminophen [...] 24 to 48 hours 3 General Instructions [facility] Emergency Department [address] [place] [address] Phone #: ext- [phone] 08/01/2020 07:33 Patient: FERNANDA SENIOR MRN: [id number] Sex: M : 2000 Age: 20y o [...] place where infectious diseases arecommon. Many people flower picker a cold or other virus while traveling. This usually goes away without aproblem. But, some places have more serious diseases. Fever with certain other symptoms maymean you have a serious illness. Symptoms to watch for include diarrhea, skin rashes, insect bites,and skin boils, or infections. Your provider may ask you: 4 General Instructions [facility] Emergency Department [address] [place] [address] Phone #: [phone] pmh- [phone] 08/01/2020 07:33 Patient: FERNANDA SENIOR Sex: M : 2000 Age: 20y What you did on your trip How long you were there Where you travelled and where you stayed (hotel, te-moak house, tent) What you ate and drank If you were bitten by insects or other bugs If you swam in freshwater If you had sex or got a tattoo or piercing while you were thereCheck the [facility] to get more information about specific infectious diseases in the areas you havetraveled. [phone] [employer] [place] [address] 41921. All rights reserved. This information is not [...] home, you will be monitored by staff [facility] or state health department. You should follow the prevention steps below until a healthcare provider [facility] [...] with pets and wear a facemask. See https://www.cdc.gov/coronavirus/2019-ncov/faq.html#3772-jNqG-yia-animals for more information. 5 General Instructions [facility] Emergency Department [address] [place] [address] Phone #: ext- [phone] 08/01/2020 07:33 Patient: FERNANDA SENIOR Sex: M [...] vehicle} or pets and before you enter [facility]. If you are not [...] available, clean your hands with analcohol-based hand oil distributor that contains at least 60% alcohol.Clean your [...] ventilation during use of the product.Monitor your symptomshttps://www.Zoomdataystem.Yaoota.com/index.php Seek prompt medical attention if your illness [...] isolation precautions should be made on a ullm-xi-qaxy basis, inconsultation with healthcareproviders and state and local health departments.Contacts InnoPad 6 General Instructions [facility] Emergency Department [address] [place] [address] Phone #: ext- [phone] 08/01/2020 07:33 Patient: FERNANDA SENIOR Sex: M [...] and bathroom, if available. 7 General Instructions [facility] Emergency Department [address] [place] [address] Phone #: ext- [phone] 08/01/2020 07:33 Patient: [...] 20 seconds or use an alcohol-based hand oil distributor that contains 60 to 95% alcohol, covering [...] with soap and water or alcohol-based hand oil distributor. Next, remove and dispose of facemask, and immediately clean your hands again with soap and water or alcohol-based hand oil distributor. Avoid sharing household items with the patient. [...] soap and water or an alcohol-based hand oil distributor} immediately after removing your gloves. https://www.Labels That Talk/index.php Read and follow directions on labels of [...] and water or an alcohol- based hand oil distributor} immediately after handling these items. Soap and water should be used preferentially if hands are visibly dirty. Discuss any additional questions with your state or local health department or healthcare provider. Check available hours when contacting your local health department.[employer]Online information 8 General Instructions [facility] Emergency Department [address] [place] [address] Phone #: ext- [phone] 08/01/2020 07:33 Patient: [...] rce(s) Supporting Document(s) ID Date Data Source [id number] 08/01/2020 07:36:00 AM EST [facility] 1 Clinical Report - Nurses [facility] Emergency Department [address] [place] [address] Phone #: ext- [phone] 08/01/2020 07:33 Patient: FERNANDA SENIOR Sex: M : 2000 Age: 20yTRIAGEArrived by private vehicle. Historian: patient. Accompanied by family.Acuity: LEVEL 3.Chief Complaint: HEADACHE.Alert. No acute distress.This started yesterday. He has had fever, nausea and weakness. ( chest congestion, sore throat).Treatment MEDICAL INSURANCE CODING SPECIALIST:None.SEPSIS SCREEN: SIRS SCREEN NEGATIVE. SEPSIS SCREEN NEGATIVE. [...] carrierof CRE. 2 Clinical Report - Nurses [facility] Emergency Department [address] [place] [address] Phone #: ext- [phone] 08/01/2020 07:33 Patient: [...] with aseptic 3 Clinical Report - Nurses [facility] Emergency Department [address] [place] [address] Phone #: ext- [phone] 08/01/2020 07:33 Patient: [...] Mendes R.N. 4 Clinical Report - Nurses [facility] Emergency Department [address] [place] [address] Phone #: ext- [phone] 08/01/2020 07:33 Patient: FERNANDA SENIOR Sex: M [...] Patient verbalized understanding. Written instructions provided in Malaysian. The patient was discharged by the physician assistant executive housekeeper. He was discharged home and accompanied by [...] rce(s) Supporting Document(s) ID Date Data Source [id number] 08/01/2020 07:36:00 AM EST [facility] 1 Clinical Report - Physicians/Mid Levels [facility] Emergency Department [address] [place] [address] Phone #: ext- [phone] 08/01/2020 07:33 Patient: [...] NOTES 2 Clinical Report - Physicians/Mid Levels [facility] Emergency Department [address] [place] [address] Phone #: ext- [phone] 08/01/2020 07:33 Patient: FERNANDA SENIOR Sex: M [...] PROCEDURAL CONTROL VALID ){ KIT LOT # [id number] ){ KIT EXP DATE 10.06.21 )The Strep A 2 assay utilizes isothermal nucleic acid amplification technology fothe qualitative detection of Group A Strep bacterial nucleic acid in throat swabspecimens.All negative test results no longer need to be confirmed with a culture. Follow-up testing requiring a culture is necessary if clinical symptoms persist, or inthe event 3 Clinical Report - Physicians/Mid Levels [facility] Emergency Department [address] [place] [address] Phone #: ext- [phone] 08/01/2020 07:33 Patient: FERNANDA SENIOR Sex: M [...] 08/01/2020 08:01) ( MsgRcvd 08/01/2020 09:08) In ElizaCHEST PORTABLEReason(s): cough, fever, chest congestionTRANSPORTATION: P IV? O2? Oxygen?(No) Room: ED [place] [address] PHONE: [phone] FAX: [phone] Name .................. : PARRISH Sue Acct Number.................. : [id number] ROOM. .... ............. : TR-1B MR Number ................... : [id number] Stay type ............. : E/R Discharge Date......... ... : Admit Date ......... : 08/01/20 Admit Phys .................... : YANG JOAN Date of ....... : 2000 Family Phys ................... : NO PCP Phone .................. : [phone] Age ................................ : 20 Film# .................. .:[id number] Sex ................................. : M Unsigned saucedo scriptions are preliminary reports and do not represent a medical or legal document CHEST PORTABLE 97125 COMPLETE:08/01/20 08:16 KBO 366 Reason(s): cough, fever, chest congestion CHEST AP PORTABLE, 08/01/20: FINDINGS: The cardiac and mediastinal silhouettes appear normal and the lungs are clear. The bones and soft tissues are normal. The upper abdomen is unremarkable. IMPRESSION: No acute disease identifiable. Electronically Reviewed and Signed By DCTNAME , SIGNDATE, [facility] Transcribe Initials: SSR, Transcribe Date: 08/01/20 09:07, Dictation Date: 4 Clinical Report - Physicians/Mid Levels [facility] Emergency Department [address] [place] [address] Phone #: ext- [phone] 08/01/2020 07:33 Patient: FERNANDA SENIOR Sex: M [...] (self quarantine at home until contacted by [facility] with COVID 19 test results.). Warnings: [...] plan of care. Follow-up with: [facility], , , [address] [place] [address], , [place], [address] Follow up in one day even if well. Call for the next available appointment. Summary of care provided to 5 Clinical Report - Physicians/Mid Levels [facility] Emergency Department [address] [place] [address] Phone #: ext- [phone] 08/01/2020 07:33 Patient: FERNANDA SENIOR Sex: M : 2000 Age: 20y patient via paper.(Electronically signed by FREDO Shaw 08/01/2020 11:06) Name Value Range Interpretation Code Description Data Saima rce(s) Supporting Document(s) ID Date Data Source [id number] 08/01/2020 07:36:00 AM EST [facility] Addenda for FERNANDA SENIOR VisitID: [id number] Date: 9:29covid results positive, pt called and made aware.(Electronically signed by Savanah Carter RN - 08/03/2020 9:29) Name Value Range Interpretation Code Description Data Saima rce(s) Supporting Document(s) ID Date Data Source [id number] 08/02/2020 01:25:00 PM [facility] [address] [facility] [place] [address] RESPIRATORY CARE REPORT ==== ---------NAME------- NUMBER SEX AGE ADMIT DISC. XRAY# F/C TYPECOMPS FERNANDA Sue [id number] M 20 08/01/20 08/01/20 [id number] SB4 E/R DATE OF : 2000 M/R# [id number] PH#: [phone] TR-1B LOCATION: EMERGENCY DEPT EKG 17650 COMP LETE:08/01/20 15:05 M 6[address] PHYSICIAN: YANG FRANCO Name Value Range Interpretation Code Description Data Saima rce(s) Supporting Document(s) ID Date Data Source [id number] 08/01/2020 07:55:00 AM EST [facility] Name Value Range Interpretation Code Description Data Saima rce(s) Supporting Document(s) SARS coronavirus 2 RNA Detected [facility] This lab was ordered by [facility] casey and reported by [facility]. ID Date Data Source [id number] 08/03/2020 06:51:00 AM [facility] Name Value Range Interpretation Code Description Data Saima rce(s) Supporting Document(s) SARS-CoV-2, ANDREY Detected Not Detected [facility] This nucleic acid amplification test was developed and its performancecharacteristics determined by [employer]. Nucleic acidamplification tests include RT-PCR and TMA. [...] in this assay. ID Date Data Source [id number] 08/01/2020 09:04:00 AM EST [facility] Name Value Range Interpretation Code Description Data Saima rce(s) Supporting Document(s) Influenza virus A Ag [Presence] in Nasopharynx by [facility] y NEGATIVE NORMAL: NEGATIVE [facility] Influenza virus B Ag [Presence] in Nasopharynx by [facility] y NEGATIVE NORMAL: NEGATIVE [facility] NEGATIVENEGATIVE PROCEDURAL CO NTROL VALID KIT [...] other patient managementdecisions. ID Date Data Source [id number] 08/01/2020 08:55:00 AM EST [facility] Name Value Range Interpretation Code Description Data Saima rce(s) Supporting Document(s) RAPID STREP NEGATIVE NORMAL: NEGATIVE [facility] RAPID STREP REENTER NEGATIVE NORMAL: NEGATIVE [facility] { PROCEDURAL CONTROL VALID ){ KIT LOT # [id number] ){ KIT EXP DATE 10.06.21 )The Strep [...] basis for treatment. ID Date Data Source [id number] 05/09/2020 12:00:00 AM EST [facility] Name Value Range Interpretation Code Description Data [facility] rce(s) Supporting Document(s) SARS coronavirus 2 Ag [facility] This lab was ordered by [facility] and reported by [facility]. Procedure Social History Code Duration Value Status Description Data Source(s ) Smoking 05/09/2020 12:00:00 AM EST Patient has never smoked co mpleted Patient has never smoked [facility] ([facility]) Vital Signs ID Date Data Source UNK Name Value Range Interpretation Code Description Data Source(s) Systolic blood pressure 132 mm[Hg] 132 mm[Hg] M [facility] ([facility]) Diastolic blood pressure 80 mm[Hg] 80 mm[Hg] [facility] Heart rate 95 /min 95 /min [facility] ([facility]) Respiratory rate 14 /min 14 /min [facility] ( [facility]) Oxygen saturation in Arterial blood by Pulse oximetry 98 % 98 % [facility] ([facility]) Body temperature 98.4 [degF] 98.4 [degF] [facility] Body weight 206.00 [lb_av] 206.00 [lb_av] RAYSHAWN Foley ([facility], [facility]) Body height 70 [in_i] 70 [in_i] YUNIER ([facility], [facility]) 5'10" Body mass index (BMI) [Ratio] 29.6 kg/m2 29.6 k g/m2 YUNIER ([facility], [facility])
[2021-04-13] MEDS ORDERED: FLUORESCEIN OPHTH 1 MG STRIP OS ONE (14:35)
[2021-04-13] MEDS ORDERED: TETRACAINE 0.5% OPHTH SOLN 4ML OS ONE (14:35)
[2021-04-13] MEDS ORDERED: OLOP0.1D OD (14:54)
[2021-04-13 15:02] VITALS: BP 139/76
== END 2021-04-13 15:04 | disposition home or self-care (01) ==
LOC: M ED 11:54
DX: H57.89 Other specified disorders of eye and adnexa (principal); K21.9 Gastro-esophageal reflux disease without esophagitis; Z79.899 Other long term (current) drug therapy

== ENCOUNTER 2022-01-04 07:43 | Emergency (ER) | payer OTHER ==
[~2022-01-04] VITALS: Ht 177.8 cm; Wt 100.0 kg
[~2022-01-04 07:43] MED LIST changes: +OLOP5DRO16 OD
[2022-01-04] MEDS ORDERED: LOPE1CAP5 PO (08:16)
[2022-01-04] MEDS ORDERED: NS 1,000 ML IV ONE (11:50)
[2022-01-04 12:26] LABS: BASO % 0.5 % (0.0-1.0); EOS # 0.2 10^3/uL (0.0-0.5); HEMATOCRIT 44.6 % (42.0-52.0); HEMOGLOBIN 15.2 g/dl (13.5-17.5); LYMPH # 3.3 10^3/uL (1.5-5.0); LYMPH % 41.9 % (24.0-44.0); MEAN CORPUSCULAR HEMOGLOBIN 29.2 pg (27.0-33.0); MEAN CORPUSCULAR HGB CONC 34.1 g/dl (32.0-36.5); MEAN CORPUSCULAR VOLUME 85.8 fl (80.0-96.0); MONO # 0.8 10^3/uL (0.0-0.8); MONO % 9.7 % (2.0-8.0); NEUTROPHILS # 3.6 10^3/uL (1.5-8.5); NEUTROPHILS % 45.6 % (36.0-66.0); PLATELET COUNT, AUTOMATED 191 10^3/uL (150-450); WHITE BLOOD COUNT 7.9 10^3/uL (4.0-10.0)
[2022-01-04 13:35] LABS: ALBUMIN 4.4 GM/DL (3.2-5.2); BILIRUBIN,DIRECT 0.1 MG/DL (0.0-0.2); BILIRUBIN,TOTAL 0.6 MG/DL (0.2-1.0); TOTAL PROTEIN 8.1 GM/DL (6.4-8.2)
[2022-01-04 14:00] VITALS: BP 143/75
== END 2022-01-04 14:04 | disposition home or self-care (01) ==
LOC: M ED 07:43
DX: R19.7 Diarrhea, unspecified (principal); A04.1 Enterotoxigenic Escherichia coli infection